=== PATIENT | female | born 1960 | race Two or more races ===

== ENCOUNTER 2020-09-19 13:48 | Emergency (ER) | payer OTHER ==
[~2020-09-19] VITALS: Ht 160 cm; Wt 107.5 kg
[2020-09-19 14:32] LABS: Basophils # (auto) 0 10 ^3/uL (0-0.2); Basophils % (auto) 0.6 % (0.0-2.0); Eosinophils # (auto) 0.2 10 ^3/uL (0-0.8); Eosinophils % (auto) 1.8 % (0.0-7.0); Hematocrit 39.6 % (36.0-46.0); Hemoglobin 13.7 g/dL (12.2-16.2); Lymphocytes # (auto) 1.8 10 ^3/uL (0.4-5.4); Lymphocytes % (auto) 21.7 % (10.0-50.0); Mean Corpuscular Hemoglobin 29.8 pg (28.0-32.0); Mean Corpuscular Hgb Conc. 34.7 g/dL (32.0-36.0); Mean Corpuscular Volume 85.8 fL (80.0-100.0); Monocytes # (auto) 0.5 10 ^3/uL (0-1.3); Monocytes % (auto) 5.7 % (0.0-12.0); Neutrophils # (auto) 5.8 10 ^3/uL (1.6-8.6); Neutrophils % (auto) 70.2 % (37.0-80.0); Nucleated Red Blood Cells % 0.1 %; Red Blood Cells 4.61 10^6/uL (4.0-5.20); Red Cell Distribution Width 13.7 % (11.8-14.3); White Blood Cell 8.3 10^3/uL (4.4-10.8)
[2020-09-19 14:38] LABS: INR 1.03 (0.9-1.15)
[2020-09-19 14:49] LABS: Albumin 3.6 g/dL (3.4-5.0); Anion Gap 6 (5-15); Blood Urea Nitrogen 11 mg/dL (7-18); Calcium 8.7 mg/dL (8.5-10.1); Carbon Dioxide 27 mmol/L (21-32); Chloride 107 mmol/L (98-107); Glucose 143 mg/dL (74-106); Magnesium 2.2 mg/dL (1.6-2.6); Potassium 3.7 mmol/L (3.5-5.1); Sodium 140 mmol/L (136-145)
[2020-09-19 14:56] LABS: Alanine Aminotransferase 29 U/L (13-56); Alkaline Phosphatase 95 U/L (45-117); Aspartate Aminotransferase 13 U/L (15-37); BUN/Creatinine Ratio 14.7; Bilirubin, Total 0.3 mg/dL (0.2-1.0); GFR African American 102 mL/min; GFR Non-African American 84 mL/min; Total Protein 7.4 g/dL (6.4-8.2)
[2020-09-19 15:58] LABS: Urine Bacteria NONE SEEN /hpf (None Seen); Urine Blood Negative /uL (Negative); Urine Specific Gravity 1.015 (1.001-1.035); Urine WBC <1 /hpf (0 - 5)
[2020-09-19 16:50] VITALS: BP 145/78
== END 2020-09-19 17:00 | disposition home or self-care (01) ==
LOC: ER 13:48
DX: R07.89 Other chest pain (principal); R00.2 Palpitations; I10 Essential (primary) hypertension; J45.909 Unspecified asthma, uncomplicated
CPT/HCPCS: 36415; 71045; 80053; 81001; 83735; 83880; 84443; 84484; 85025; 85610; 93005

== ENCOUNTER 2021-07-08 16:16 | Emergency (ER) | payer SELFPAY ==
[~2021-07-08] VITALS: Ht 160 cm; Wt 107.5 kg
[2021-07-08 17:16] LABS: Basophils # (auto) 0.1 10 ^3/uL (0-0.2); Basophils % (auto) 0.9 % (0.0-2.0); Eosinophils # (auto) 0.2 10 ^3/uL (0-0.8); Eosinophils % (auto) 1.7 % (0.0-7.0); Hematocrit 44.5 % (36.0-46.0); Lymphocytes % (auto) 20.9 % (10.0-50.0); Mean Corpuscular Hemoglobin 29.2 pg (28.0-32.0); Mean Corpuscular Hgb Conc. 33.8 g/dL (32.0-36.0); Mean Corpuscular Volume 86.5 fL (80.0-100.0); Monocytes # (auto) 0.5 10 ^3/uL (0-1.3); Monocytes % (auto) 5.3 % (0.0-12.0); Neutrophils % (auto) 71.2 % (37.0-80.0); Nucleated Red Blood Cells % 0.3 %; Red Blood Cells 5.14 10^6/uL (4.0-5.20); Red Cell Distribution Width 13.5 % (11.8-14.3); White Blood Cell 9.8 10^3/uL (4.4-10.8)
[2021-07-08 17:34] LABS: Urine Bacteria FEW /hpf (None Seen); Urine Blood Negative /uL (Negative); Urine Specific Gravity 1.006 (1.001-1.035); Urine WBC 1 /hpf (0 - 5)
[2021-07-08 17:40] LABS: Albumin 3.7 g/dL (3.4-5.0); Calcium 8.9 mg/dL (8.5-10.1); Potassium 4.9 mmol/L (3.5-5.1)
[2021-07-08 17:42] LABS: BUN/Creatinine Ratio 11.7
[2021-07-08 17:45] LABS: Bilirubin, Total 0.3 mg/dL (0.2-1.0); Total Protein 7.8 g/dL (6.4-8.2)
[2021-07-08] MEDS ORDERED: SODIUM CHLORIDE 0.9% 1,000 ML IVB ONE (23:45)
[2021-07-08] MEDS ORDERED: IODIXANOL 320MG/ML 100ML BTL IV ONE (23:45)
[2021-07-09 01:15] LABS: Basophils # (auto) 0.1 10 ^3/uL (0-0.2); Basophils % (auto) 0.7 % (0.0-2.0); Eosinophils # (auto) 0.1 10 ^3/uL (0-0.8); Eosinophils % (auto) 1.5 % (0.0-7.0); Hematocrit 41.6 % (36.0-46.0); Hemoglobin 14.6 g/dL (12.2-16.2); Lymphocytes # (auto) 2.5 10 ^3/uL (0.4-5.4); Lymphocytes % (auto) 25.9 % (10.0-50.0); Mean Corpuscular Hemoglobin 29.9 pg (28.0-32.0); Mean Corpuscular Hgb Conc. 35.2 g/dL (32.0-36.0); Mean Corpuscular Volume 85.1 fL (80.0-100.0); Monocytes # (auto) 0.5 10 ^3/uL (0-1.3); Monocytes % (auto) 5.7 % (0.0-12.0); Neutrophils # (auto) 6.4 10 ^3/uL (1.6-8.6); Neutrophils % (auto) 66.2 % (37.0-80.0); Nucleated Red Blood Cells % 0.2 %; Red Blood Cells 4.88 10^6/uL (4.0-5.20); Red Cell Distribution Width 13.8 % (11.8-14.3); White Blood Cell 9.6 10^3/uL (4.4-10.8)
[2021-07-09 01:33] LABS: Albumin 3.6 g/dL (3.4-5.0); Calcium 8.6 mg/dL (8.5-10.1)
[2021-07-09 01:36] LABS: BUN/Creatinine Ratio 11.4
[2021-07-09 01:41] LABS: Bilirubin, Total 0.4 mg/dL (0.2-1.0); Total Protein 7.3 g/dL (6.4-8.2)
[2021-07-09] MEDS ORDERED: LIDOCAINE VISCOUS 2% 15ML UD MT ONE (02:00)
[2021-07-09] MEDS ORDERED: ALUM & MAG HYDROX-SIMETH LIQ(MAALOX) 30 ML PO ONE (02:00)
[2021-07-09] MEDS ORDERED: DONNATAL 5ml ORAL Elix (BELLADONNA ALK-PHENOBARB) PO ONE (02:00)
[2021-07-09 02:28] VITALS: BP 129/75
[2021-07-09] MEDS ORDERED: FAMO-12 PO (02:41)
[2021-07-09] MEDS ORDERED: diphenhdrAMINE HCL 50 MG/1 ML VL IV ONE (02:45)
== END 2021-07-09 03:23 | disposition home or self-care (01) ==
LOC: ER 16:16
DX: K29.70 Gastritis, unspecified, without bleeding (principal)
CPT/HCPCS: 36415; 74177; 80053; 81001; 83605; 83690; 84484; 85025; 96360; 96361; 99285; J7030; Q9967